=== PATIENT | female | born 1935 | race Caucasian/White ===

== ENCOUNTER 2016-12-31 09:07 | Emergency (ER) | payer OTHER ==
--- NOTE | ~2016-12-31 | CT71 ---
[facility] A Service [facility] RADIOLOGY TEXT RESULTS PATIENT: PARESH JENKINS LOCATION: [facility] : 34 UNIT #: [id number] AGE: [address]: Leona Hughes MD SEX: F ORDER DR: [id number] [facility] [address] [place], [place] [address] [id number] E MR#: [id number] Acc #: [id number] NAME: PARESH JENKINS : 1935 SEX: F STUDY DATE/TIME: 12/31/2016 10:15 UNIT: [facility] ROOM: STUDY DESCRIPTION: CT Head Wo Contrast Attending Physician: Leona Hughes M.D. Ordering Physician: Leona Hughes M.D. Primary Care Physician: Gagandeep Berger Jr., M.D. MEDICAL IMAGING REPORT This report is preliminary unless electronic signature is present EXAM CT of the head without contrast. INDICATIONS Confusion since yesterday. COMPARISON 06/08/[address] exam was performed with one or more of the following radiation dose reduction techniques: automatic exposure control, adjustment of mA and/or kV according to patient size, and iterative reconstruction. FINDINGS There is no intracranial hemorrhage. There is no evidence for acute cortical based infarction, focal mass lesion or hydrocephalus. There is mucosal thickening in multiple ethmoid air cells and also the inferior right maxillary sinus. The included orbits are unremarkable. The bone windows are unremarkable. IMPRESSION No acute intracranial abnormality. Dictated by... Madi Chase M.D. THIS IS AN ELECTRONICALLY VERIFIED REPORT Madi Chaes M.D. at 01/01/2017 3:47 PM ELDON/cristóbal TD: 12/31/2016 22:03 [facility] A Service [facility] RADIOLOGY TEXT RESULTS PATIENT: PARESH JENKINS LOCATION: [facility] : 34 UNIT #: [id number] AGE: [address]: SaulLeona P SEX: F ORDER DR: JOB #: [id number] MEDICAL IMAGING REPORT Page 1 of 1 COPY
--- NOTE | ~2016-12-31 | EKG ---
PATIENT: PARESH JENKINS UNIT #: [id number] Ventricular Rate: 78 BPM Atrial Rate: 250 BPM QRS Duration: 74 ms Q-T Interval: 394 ms QTC Calculation(Bezet): 449 ms Calculated R [place]: 46 degrees Calculated T [place]: -17 degrees Diagnosis Line: Atrial fibrillation Diagnosis Line: Low voltage QRS Diagnosis Line: Nonspecific T wave abnormality Diagnosis Line: Abnormal ECG Diagnosis Line: When compared with ECG of 30-APR-2012 12:17, Diagnosis Line: Nonspecific T wave abnormality no longer evident Diagnosis Line: in Anterior leads Diagnosis Line: QT has lengthened Diagnosis Line: Confirmed by BENY ORTIZ MD ([id number]) on Diagnosis Line: 01/02/2017 8:35:27 AM INTERPRETING MD: ANGEL OWENS
--- NOTE | ~2016-12-31 | CR72 ---
[facility] A Service of [facility] RADIOLOGY TEXT RESULTS PATIENT: PARESH JENKINS LOCATION: [facility] : 34 UNIT #: [id number] AGE: [address]: Leona Hughes MD SEX: F ORDER DR: [id number] [facility] [address] [place], [place] [address] [id number] E MR#: [id number] Acc #: [id number] NAME: PARESH JENKINS : 1935 SEX: F STUDY DATE/TIME: 12/31/2016 9:52 UNIT: [facility] ROOM: STUDY DESCRIPTION: CR Chest Single View Portable Attending Physician: Leona Hughes M.D. Ordering Physician: Leona Hughes M.D. Primary Care Physician: Gagandeep Berger Jr., M.D. MEDICAL IMAGING REPORT This report is preliminary unless electronic signature is present EXAM Portable chest. INDICATION Chest pain and left arm pain today. COMPARISON Comparison with 01/15/2012. FINDINGS There is no acute-appearing infiltrate. Heart size stable. Visualized osseous structures are unremarkable. IMPRESSION No active disease. Dictated by... Madi Chase M.D. THIS IS AN ELECTRONICALLY VERIFIED REPORT Madi Chase M.D. at 01/01/2017 3:47 PM ELDON/cristóbal TD: 12/31/2016 21:02 JOB #: [id number] MEDICAL IMAGING REPORT Page 1 of 1 COPY
[~2016-12-31 09:07] MED LIST: AMLODIPINE BESY10 MG PO; ASPIRIN81 M1 PO; CARDIZEM CD180 M2 PO; CETIRIZINE HCL10 MG PO; LOPRESSOR PO; MULTIVITAMIN W-1 TAB PO; PLAVIX PO; PROTONIX PO; PROVENTIL INH0.5 ML; SIMVASTATIN20 MG PO; TYLENOL325 M1 PO
[2016-12-31 09:57] LABS: BASOPHIL# 0.1 X10e3 (0-0.3); BASOPHIL% 0.6 % (0-2.5); EOSINOPHIL# 0.1 X10e3 (0-0.7); EOSINOPHIL% 0.9 % (0.0-7.0); HEMATOCRIT 46.4 % (35.0-45.0); LYMPHOCYTE# 1.3 X10e3 (1.0-3.5); LYMPHOCYTE% 13.8 % (17.0-45.0); MEAN CELL VOLUME 93.1 FL (83-96); MEAN CORPUSCULAR HEMOGLOBIN 30.2 PG (28-34); MEAN CORPUSCULAR HGB CONC 32.4 g/dL (30-36); MONOCYTE# 0.9 X10e3 (0-1.0); NEUTROPHIL% 74.7 % (40-75); PLATELET COUNT 194 X10e3 (140-420); RED BLOOD COUNT 4.98 X10e (3.90-5.30); RED CELL DISTRIBUTION WIDTH 14.9 % (11.0-15.5); WHITE BLOOD COUNT 9.3 X10e3 (4.0-10.5)
[2016-12-31 09:58] LABS: DIFF IND NO
[2016-12-31 10:11] LABS: INR 1.1; PARTIAL THROMBOPLASTIN TIME 26.1 SECONDS (23.5-31.3); PROTHROMBIN TIME (PATIENT) 11.4 SECONDS (9.6-11.5)
[2016-12-31 10:19] LABS: POC - CKMB 1.4 ng/mL (0.0-7.9); POC - TROPONIN <0.05 ng/mL (<=0.05)
[2016-12-31 10:28] LABS: ALBUMIN SERUM 4.1 g/dL (3.5-5.0); ALKALINE PHOSPHATASE 73 U/L (32-92); ALT (SGPT) 17 U/L (10-40); AST (SGOT) 21 U/L (10-42); BILIRUBIN, DIRECT 0.3 mg/dL (0.0-0.2); BILIRUBIN,INDIRECT 0.7 mg/dL (0.0-0.9); BLOOD UREA NITROGEN 20 mg/dL (9-23); CALCIUM SERUM 9.8 mg/dL (8.4-10.2); CARBON DIOXIDE 24 mmol/L (22-31); CHLORIDE 105 mmol/L (100-111); CREATININE SERUM 0.8 mg/dL (0.6-1.4); GLOM FILT RATE Estimated 68.7 mL/min (>60); GLUCOSE FASTING 114 mg/dL (70-110); POTASSIUM 4.6 mmol/L (3.5-5.1); PROTEIN TOTAL SERUM 6.3 g/dL (6.0-8.3); SODIUM 138 mmol/L (135-145)
[2016-12-31 10:32] LABS: ALCOHOL BLOOD <5 mg/dL (0)
[2016-12-31 11:04] LABS: URINE SOURCE CLEAN CATCH
[2016-12-31 11:11] LABS: URINE APPEARANCE CLEAR; URINE BILIRUBIN NEG (NEG); URINE BLOOD TRACE (NEG); URINE COLOR YELLOW; URINE GLUCOSE NEG (NEG); URINE KETONE NEG (NEG); URINE LEUKOCYTE ESTERASE NEG (NEG); URINE NITRATE NEG (NEG); URINE PH 6.5 (5-8); URINE PROTEIN NEG (NEG); URINE SPECIFIC GRAVITY 1.006 (1.003-1.035); URINE UROBILINOGEN 0.2 MG/DL (NEG)
[2016-12-31 11:18] LABS: CULTURE INDICATED? NO; URBCS1 AUWI 0-2 /[HPF] (0-2); URINE BACTERIA AUWI NEG (NEGATIVE); URINE SQUAMOUS EPITHELIAL CELL NONE SEEN /[HPF]; UWBCS1 AUWI 0-2 (0-5)
[2016-12-31 12:32] LABS: POC - CKMB 1.1 ng/mL (0.0-7.9); POC - TROPONIN <0.05 ng/mL (<=0.05)
== END 2016-12-31 13:00 | disposition home or self-care (01) ==
LOC: CED 09:07
PROVIDERS: Student in an Organized Health Care Education/Training Program
DX: M79.602 Pain in left arm (principal); R42 Dizziness and giddiness; I10 Essential (primary) hypertension; E78.5 Hyperlipidemia, unspecified
CPT/HCPCS: 36415; 70450; 71010; 80048; 80076; 81003; 82553; 83880; 84484; 85025; 85610; 85730; 93005; 99284; G0480